=== PATIENT | female | born 1990 | race Two or more races ===

== ENCOUNTER 2018-03-08 10:56 | Outpatient (CLI) | payer SELFPAY ==
[2018-03-08 12:21] LABS: RUPTURE FETAL MEMBRANES NEGATIVE (NEGATIVE)
[2018-03-08 12:41] LABS: ADD UMIC YES; UR ASCORBIC ACID NEGATIVE (NEGATIVE); UR BACTERIA FEW /HPF (NONE SEEN); UR BILIRUBIN (Dip) NEGATIVE (NEGATIVE); UR BLOOD (Dip) 2+ mg/dL (NEGATIVE); UR CLARITY SLIGHTLY CLOUDY (CLEAR); UR COLOR YELLOW (YELLOW); UR GLUCOSE (Dip) NEGATIVE (NEGATIVE); UR KETONES (Dip) NEGATIVE (NEGATIVE); UR LEUKOCYTE ESTERASE (Dip) 3+ Leu/ul (NEGATIVE); UR NITRITE (Dip) NEGATIVE (NEGATIVE); UR RBC 1 /HPF (0-5); UR SPECIFIC GRAVITY (Dip) 1.012 (1.003-1.030); UR SQUAMOUS EPITHELIAL CELL FEW /HPF (FEW); UR TOTAL PROTEIN (Dip) NEGATIVE (NEGATIVE); UR UROBILINOGEN (Dip) NEGATIVE (NEGATIVE); UR WBC 22 /HPF (0-5)
== END 2018-03-08 13:48 | disposition home or self-care (01) ==
LOC: OBT 10:56 → L-D 10:56 → OBT 13:48
DX: O47.1 False labor at or after 37 completed weeks of gestation (principal); Z3A.38 38 weeks gestation of pregnancy
CPT/HCPCS: 76818; 81001; 84112

== ENCOUNTER 2018-03-13 06:00 | Inpatient (IN) | payer SELFPAY ==
[2018-03-13 06:51] LABS: ADD MAN DIFF? NO
[2018-03-13 06:57] LABS: BASOPHILS % 0.2 % (0.0-2.0); EOSINOPHILS % 0.1 % (0.0-7.0); HEMATOCRIT 39.1 % (37.0-47.0); HEMOGLOBIN 13.3 g/dl (12.0-16.0); LYMPHOCYTES # 1.9 10^3/ul (0.8-2.9); LYMPHOCYTES % 10.5 % (15.0-51.0); MEAN CORPUSCULAR HEMOGLOBIN 28.9 pg (29.0-33.0); MEAN PLATELET VOLUME 10.2 fl (7.4-10.4); MONOCYTE # 0.8 10^3/ul (0.3-0.9); MONOCYTES % 4.5 % (0.0-11.0); NEUTROPHIL # 15.2 10^3/ul (1.6-7.5); NEUTROPHILS % 84.1 % (39.0-77.0); PLATELET COUNT 335 10^3/UL (140-415); RED CELL DISTRIBUTION WIDTH 12.1 % (11.5-14.5)
[2018-03-13] MEDS: LACTATED RINGER'S 1,000 ML IV ×4 (06:57→21:32)
[2018-03-13] MEDS ORDERED: BUTORPHANOL 2 MG INJ IV (07:00)
[2018-03-13] MEDS ORDERED: OXYTOCIN 30 UNITS/LR 500 ML IV ×2 (07:00→09:00)
[2018-03-13] MEDS ORDERED: CARBOPROST 250 MCG INJ IM ×2 (07:00→09:00)
[2018-03-13] MEDS ORDERED: MISOPROSTOL 200 MCG TAB PR ×2 (07:00→09:00)
[2018-03-13] MEDS ORDERED: IBUPROFEN 600 MG TAB PO (07:00)
[2018-03-13] MEDS ORDERED: METHYLERGONOVINE 0.2 MG INJ IM (07:00)
[2018-03-13 07:17] LABS: INR 0.86; PROTIME 11.8 Sec (11.9-14.9); PT RATIO 0.9
[2018-03-13 07:18] LABS: PARTIAL THROMBOPLASTIN TIME 28.9 Sec (23.0-35.0)
[2018-03-13] MEDS: OXYTOCIN 30 UNITS/LR 500 ML IV ×2 (07:49→07:56)
[2018-03-13] MEDS: LIDOCAINE 1% (MPF) 30 ML INJ INJ ×2 (07:50→07:57)
[2018-03-13 08:06] LABS: HEPATITIS B SURFACE ANTIGEN NEGATIVE (NEGATIVE)
[2018-03-13] MEDS ORDERED: LACTATED RINGER'S 1,000 ML IV* (08:44)
[2018-03-13] MEDS ORDERED: DIPHENHYDRAMINE 25 MG CAP PO (09:00)
[2018-03-13] MEDS ORDERED: MAGNESIUM HYDROXIDE 30ML CUP PO (09:00)
[2018-03-13] MEDS ORDERED: ONDANSETRON 4 MG INJ IV (09:00)
[2018-03-13] MEDS ORDERED: ONDANSETRON 4 MG TAB PO (09:00)
[2018-03-13] MEDS ORDERED: DIPHENHYDRAMINE 50 MG INJ IV (09:00)
[2018-03-13] MEDS ORDERED: SENNA/DOCUSATE NA (8.6MG/50MG) TAB PO (09:00)
[2018-03-13] MEDS ORDERED: NA PHOSPHATE/BIPHOS 133 ML ENEMA PR (09:00)
[2018-03-13] MEDS ORDERED: HYDROCODONE/APAP (5/325) TAB PO ×2 (09:00)
[2018-03-13] MEDS: CEFAZOLIN 2 GM/50 ML (PMX) 50 ML IVPB ×3 (09:38→21:32)
[2018-03-13] MEDS: WITCH HAZEL/GLYCERIN PAD PR (11:52)
[2018-03-13] MEDS: LANOLIN HPA 1 PKT TOP (11:52)
[2018-03-13] MEDS: BENZOCAINE 20% 56 ML SPRAY TOP (11:53)
[2018-03-13] MEDS: SENNA/DOCUSATE NA (8.6MG/50MG) TAB PO ×2 (11:53→21:32)
[2018-03-13] MEDS: DIBUCAINE 1% 30 GM OINT TOP (11:53)
[2018-03-13] MEDS: IBUPROFEN 600 MG TAB PO ×3 (11:54→23:50)
[2018-03-13 22:17] LABS: RAPID PLASMA REAGIN NONREACTIVE (NR)
[2018-03-14] MEDS: LACTATED RINGER'S 1,000 ML IV (05:47)
[2018-03-14] MEDS: IBUPROFEN 600 MG TAB PO ×4 (06:05→23:58)
[2018-03-14 08:15] LABS: ADD MAN DIFF? NO
[2018-03-14 08:20] LABS: BASOPHILS % 0.3 % (0.0-2.0); EOSINOPHILS # 0.2 10^3/ul (0.0-0.5); EOSINOPHILS % 1.5 % (0.0-7.0); HEMATOCRIT 31.7 % (37.0-47.0); HEMOGLOBIN 10.4 g/dl (12.0-16.0); LYMPHOCYTES # 2.8 10^3/ul (0.8-2.9); LYMPHOCYTES % 21.5 % (15.0-51.0); MEAN CORPUSCULAR HEMOGLOBIN 28.7 pg (29.0-33.0); MEAN CORPUSCULAR HGB CONC 32.8 g/dl (32.0-37.0); MEAN CORPUSCULAR VOLUME 87.6 fl (82.0-101.0); MEAN PLATELET VOLUME 10.4 fl (7.4-10.4); MONOCYTE # 0.7 10^3/ul (0.3-0.9); MONOCYTES % 5.1 % (0.0-11.0); NEUTROPHIL # 9.2 10^3/ul (1.6-7.5); NEUTROPHILS % 71.1 % (39.0-77.0); PLATELET COUNT 270 10^3/UL (140-415); RED BLOOD COUNT 3.62 10^6/ul (4.20-5.40); RED CELL DISTRIBUTION WIDTH 12.7 % (11.5-14.5)
[2018-03-14] MEDS: SENNA/DOCUSATE NA (8.6MG/50MG) TAB PO ×2 (11:44→21:12)
[2018-03-14] MEDS: INFLUENZA VIRUS VACCINE 0.5 ML (DISPENSING) IM* (11:46)
[2018-03-15] MEDS: IBUPROFEN 600 MG TAB PO ×2 (05:45→12:00)
[2018-03-15] MEDS: VARICELLA VACCINE LIVE/PF 1,350 UNIT/0.5 ML ML SC* (09:00)
[2018-03-15] MEDS: MEASLES,MUMPS,RUBELLA VACCINE INJ SC* (09:00)
[2018-03-15] MEDS: SENNA/DOCUSATE NA (8.6MG/50MG) TAB PO (10:02)
[2018-03-15] MEDS: DIPHTH/TET/ACEL PERTUSS (ADULT) 0.5 ML VIAL IM* (10:03)
== END 2018-03-15 12:27 | disposition home or self-care (01) | DRG 768 ==
LOC: OBT 06:00 → L-D 06:00 → OBT 06:25 → L-D 06:25 → PP1 10:28
PROVIDERS: Specialist
PROC: 10E0XZZ Delivery of Products of Conception, External Approach (ICD-10-PCS; principal; 2018-03-13)
PROC: 0DQR0ZZ Repair Anal Sphincter, Open Approach (ICD-10-PCS; 2018-03-13)
DX: O69.81X0 Labor and delivery complicated by cord around neck, without compression, not applicable or unspecified (principal); Z37.0 Single live birth; O70.20 Third degree perineal laceration during delivery, unspecified; Z3A.39 39 weeks gestation of pregnancy
CPT/HCPCS: 85025; 85610; 85730; 86592; 86850; 86900; 86901; 87340; 90715; 90716